=== PATIENT | female | born 1955 | race Two or more races ===

== ENCOUNTER → 2017-04-17 | Outpatient (CLI) | payer BC | END | disposition home or self-care (01) | LOC: HKI 10:40 | DX: Z47.1 Aftercare following joint replacement surgery (principal); Z96.651 Presence of right artificial knee joint | CPT/HCPCS: G0463 ==

== ENCOUNTER 2017-07-21 22:35 | Emergency (ER) | payer BC ==
[2017-07-22 00:08] LABS: ADD MAN DIFF? NO
[2017-07-22 00:12] LABS: BASOPHILS % 0.5 % (0.0-2.0); EOSINOPHILS # 0.1 10^3/ul (0.0-0.5); HEMATOCRIT 35.5 % (37.0-47.0); HEMOGLOBIN 11.7 g/dl (12.0-16.0); LYMPHOCYTES % 46.5 % (15.0-51.0); MEAN CORPUSCULAR HEMOGLOBIN 30.5 pg (29.0-33.0); MEAN CORPUSCULAR VOLUME 92.4 fl (82.0-101.0); MONOCYTE # 0.4 10^3/ul (0.3-0.9); MONOCYTES % 10.1 % (0.0-11.0); NEUTROPHIL # 1.7 10^3/ul (1.6-7.5); NEUTROPHILS % 39.7 % (39.0-77.0); PLATELET COUNT 272 10^3/UL (140-415); RED BLOOD COUNT 3.84 10^6/ul (4.20-5.40); RED CELL DISTRIBUTION WIDTH 13.4 % (11.5-14.5)
[2017-07-22 00:12] LABS: WHITE BLOOD COUNT 4.3 10^3/ul (4.8-10.8)
[2017-07-22] MEDS: ASPIRIN 325 MG TAB PO (00:16)
[2017-07-22] MEDS: LIDOCAINE/MYLANTA 40 ML BTL PO (00:16)
[2017-07-22 00:33] LABS: ANION GAP 18 (8-16); BLOOD UREA NITROGEN 22 mg/dl (7-20); CALCIUM 8.7 mg/dl (8.4-10.2); CARBON DIOXIDE 26 mmol/L (21-31); CHLORIDE 107 mmol/L (97-110); CREATININE 0.56 mg/dl (0.44-1.00); GLUCOSE 94 mg/dl (70-220); POTASSIUM 4.1 mmol/L (3.5-5.1); SODIUM 147 mmol/L (135-144)
[2017-07-22 00:45] LABS: B-TYPE NATRIURETIC PEPTIDE 46 PG/ML (0-125)
[2017-07-22 00:47] LABS: TROPONIN-I < 0.012 ng/ml (0.00-0.12)
== END 2017-07-22 01:58 | disposition home or self-care (01) ==
LOC: E/R 07-22 01:58
DX: K21.9 Gastro-esophageal reflux disease without esophagitis (principal); D64.9 Anemia, unspecified; R06.02 Shortness of breath
CPT/HCPCS: 36415; 71045; 80048; 83880; 84484; 85025; 93005; 99285-25

== ENCOUNTER → 2017-08-27 | Outpatient (CLI) | payer BC | END | disposition home or self-care (01) | LOC: RAD 14:10 | DX: M17.0 Bilateral primary osteoarthritis of knee (principal) | CPT/HCPCS: 73562; 73562-50 ==

== ENCOUNTER → 2017-12-16 | Outpatient (CLI) | payer BC | END | disposition home or self-care (01) | LOC: HKI 12:03 | DX: M17.12 Unilateral primary osteoarthritis, left knee (principal); Z96.652 Presence of left artificial knee joint | CPT/HCPCS: G0463 ==

== ENCOUNTER → 2018-02-17 | Outpatient (CLI) | payer BC | END | disposition home or self-care (01) | LOC: HKI 11:07 | DX: Z01.818 Encounter for other preprocedural examination (principal) | CPT/HCPCS: G0463 ==

== ENCOUNTER → 2018-02-17 | Outpatient (CLI) | payer BC ==
[2018-02-17 13:56] LABS: ADD MAN DIFF? NO
[2018-02-17 14:11] LABS: BASOPHILS % 0.5 % (0.0-2.0); EOSINOPHILS # 0.1 10^3/ul (0.0-0.5); EOSINOPHILS % 1.3 % (0.0-7.0); HEMATOCRIT 38.3 % (37.0-47.0); HEMOGLOBIN 12.5 g/dl (12.0-16.0); LYMPHOCYTES # 2.1 10^3/ul (0.8-2.9); LYMPHOCYTES % 51.4 % (15.0-51.0); MEAN CORPUSCULAR HEMOGLOBIN 29.7 pg (29.0-33.0); MEAN CORPUSCULAR HGB CONC 32.6 g/dl (32.0-37.0); MEAN PLATELET VOLUME 10.1 fl (7.4-10.4); MONOCYTE # 0.4 10^3/ul (0.3-0.9); MONOCYTES % 8.8 % (0.0-11.0); NEUTROPHIL # 1.5 10^3/ul (1.6-7.5); NEUTROPHILS % 37.7 % (39.0-77.0); PLATELET COUNT 272 10^3/UL (140-415); RED BLOOD COUNT 4.21 10^6/ul (4.20-5.40)
[2018-02-17 14:17] LABS: ADD UMIC YES; UR ASCORBIC ACID NEGATIVE (NEGATIVE); UR BACTERIA FEW /HPF (NONE SEEN); UR BILIRUBIN (Dip) NEGATIVE (NEGATIVE); UR BLOOD (Dip) 1+ mg/dL (NEGATIVE); UR CLARITY CLEAR (CLEAR); UR COLOR STRAW (YELLOW); UR GLUCOSE (Dip) NEGATIVE (NEGATIVE); UR KETONES (Dip) TRACE mg/dL (NEGATIVE); UR LEUKOCYTE ESTERASE (Dip) 1+ Leu/ul (NEGATIVE); UR NITRITE (Dip) NEGATIVE (NEGATIVE); UR NONSQUAMOUS EPITHELIAL CELL 1 /HPF (NONE SEEN); UR RBC 1 /HPF (0-5); UR SPECIFIC GRAVITY (Dip) 1.011 (1.003-1.030); UR TOTAL PROTEIN (Dip) NEGATIVE (NEGATIVE); UR UROBILINOGEN (Dip) NEGATIVE (NEGATIVE); UR WBC 6 /HPF (0-5)
[2018-02-17 14:37] LABS: ALANINE AMINOTRANSFERASE 19 IU/L (13-69); ALBUMIN 4.3 g/dl (3.3-4.9); ALKALINE PHOSPHATASE 62 IU/L (42-121); ANION GAP 10 (8-16); ASPARTATE AMINO TRANSFERASE 22 IU/L (15-46); BILIRUBIN,INDIRECT 0.3 mg/dl (0-1.1); BILIRUBIN,TOTAL 0.3 mg/dl (0.2-1.3); BLOOD UREA NITROGEN 24 mg/dl (7-20); CALCIUM 9.3 mg/dl (8.4-10.2); CARBON DIOXIDE 29 mmol/L (21-31); CHLORIDE 108 mmol/L (97-110); CREATININE 0.54 mg/dl (0.44-1.00); GLUCOSE 95 mg/dl (70-220); SODIUM 143 mmol/L (135-144); TOTAL PROTEIN 7.6 g/dl (6.1-8.1)
[2018-02-17 16:29] LABS: INR 0.86; PROTIME 11.8 Sec (11.9-14.9); PT RATIO 0.9
[2018-02-17 16:30] LABS: PARTIAL THROMBOPLASTIN TIME 28.3 Sec (23.0-35.0)
== END | disposition home or self-care (01) ==
LOC: LAB 13:24
DX: Z01.818 Encounter for other preprocedural examination (principal)
CPT/HCPCS: 71046; 80053; 81001; 85025; 85610; 85730; 93005

== ENCOUNTER 2018-02-27 07:18 | Inpatient (IN) | payer BC ==
[2018-02-27] MEDS: ACETAMINOPHEN 1000MG/100ML IV 100 ML IVPB (06:00)
[2018-02-27] MEDS: DEXAMETHASONE 4 MG/ML 1 ML INJ IV (06:00)
[2018-02-27] MEDS: CEFAZOLIN 2 GM/50 ML (PMX) 50 ML IVPB (06:00)
[2018-02-27] MEDS: TRANEXAMIC ACID 1,000 MG in NS 100 ML INTRA-OP X1 IVPB (06:00)
[2018-02-27] MEDS: TRANEXAMIC ACID 1,000 MG in NS 100 ML PRE-OP X1 IVPB (06:00)
[~2018-02-27 07:18] MED LIST: CEFAZOLIN 1 GM INJ; EPINEPHrine 1 MG INJ; LACTATED RINGER'S 1,000 ML IV*; METOCLOPRAMIDE 10 MG INJ
[2018-02-27] MEDS ORDERED: MAGNESIUM HYDROXIDE 30ML CUP PO (07:30)
[2018-02-27] MEDS: CEFAZOLIN 1 GM/50 ML (PMX) 50 ML IVPB ×3 (07:30→23:05)
[2018-02-27] MEDS ORDERED: BETHANECHOL 25 MG TAB PO (07:30)
[2018-02-27] MEDS ORDERED: oxyCODONE 5 MG TAB PO (07:30)
[2018-02-27] MEDS ORDERED: NALOXONE (0.4 MG/ML) INJ IV (07:30)
[2018-02-27] MEDS ORDERED: SENNA/DOCUSATE NA (8.6MG/50MG) TAB PO (07:30)
[2018-02-27] MEDS ORDERED: BISACODYL 10 MG SUPP PR (07:30)
[2018-02-27] MEDS ORDERED: NA PHOSPHATE/BIPHOS 133 ML ENEMA PR (07:30)
[2018-02-27] MEDS: ONDANSETRON 4 MG INJ IV ×4 (07:30→20:25)
[2018-02-27] MEDS ORDERED: PROPOFOL 20 ML (08:07)
[2018-02-27] MEDS ORDERED: LIDOCAINE 2% (SDV) 5 ML INJ (08:07)
[2018-02-27] MEDS ORDERED: FENTAnyl 50 MCG/ML VIAL (08:08)
[2018-02-27] MEDS ORDERED: MIDAZOLAM 1 MG/ML 2 ML INJ (08:08)
[2018-02-27] MEDS ORDERED: ROPIVACAINE 0.5 % 30 ML VIAL (08:08)
[2018-02-27] MEDS ORDERED: ONDANSETRON 4 MG INJ (08:10)
[2018-02-27] MEDS ORDERED: BUPIVACAINE 0.75%/DEXT (SPINAL) 2 ML INJ (08:11)
[2018-02-27] MEDS: CELECOXIB 100 MG CAP PO ×2 (09:00→19:51)
[2018-02-27] MEDS: GABAPENTIN 100 MG CAP PO ×3 (09:00→19:51)
[2018-02-27] MEDS ORDERED: IPRATROPIUM (NEB) 0.5 MG/2.5 ML AMP HHN (09:30)
[2018-02-27] MEDS ORDERED: MEPERIDINE 25 MG INJ IV (09:30)
[2018-02-27] MEDS ORDERED: hydrALAzine 20 MG INJ IV (09:30)
[2018-02-27] MEDS ORDERED: FENTAnyl 50 MCG/ML VIAL IV ×2 (09:30)
[2018-02-27] MEDS ORDERED: HYDROmorphONE 1 MG/5 ML IV SYRINGE IV ×2 (09:30)
[2018-02-27] MEDS ORDERED: LEVALBUTEROL (NEB) 1.25 MG/0.5 ML AMP HHN (09:30)
[2018-02-27] MEDS ORDERED: LABETALOL HCL 20MG INJ IV (09:30)
[2018-02-27] MEDS ORDERED: DIPHENHYDRAMINE 50 MG INJ IV (09:30)
[2018-02-27] MEDS ORDERED: ONDANSETRON 4 MG INJ IV (09:30)
[2018-02-27] MEDS: HYDROmorphONE 1 MG/5 ML IV SYRINGE IV (11:57)
[2018-02-27] MEDS: ASPIRIN (EC) 325 MG TAB PO (12:35)
[2018-02-27] MEDS: DOCUSATE SODIUM 100 MG CAP PO (12:36)
[2018-02-27] MEDS: KETOROLAC 15 MG INJ IV (13:18)
[2018-02-27] MEDS: SOD CHLORIDE 0.9% 1,000 ML IV ×2 (14:23→20:17)
[2018-02-27] MEDS: oxyCODONE 5 MG TAB PO ×2 (18:28→21:25)
[2018-02-28] MEDS: oxyCODONE 5 MG TAB PO ×3 (03:51→20:16)
[2018-02-28 05:03] LABS: ADD MAN DIFF? NO; BASOPHILS % 0.1 % (0.0-2.0); EOSINOPHILS % 0.1 % (0.0-7.0); HEMATOCRIT 32.5 % (37.0-47.0); HEMOGLOBIN 10.3 g/dl (12.0-16.0); LYMPHOCYTES # 1.6 10^3/ul (0.8-2.9); LYMPHOCYTES % 21.2 % (15.0-51.0); MEAN CORPUSCULAR HEMOGLOBIN 29.4 pg (29.0-33.0); MEAN CORPUSCULAR HGB CONC 31.7 g/dl (32.0-37.0); MEAN CORPUSCULAR VOLUME 92.9 fl (82.0-101.0); MONOCYTE # 0.6 10^3/ul (0.3-0.9); MONOCYTES % 7.9 % (0.0-11.0); NEUTROPHIL # 5.2 10^3/ul (1.6-7.5); NEUTROPHILS % 70.4 % (39.0-77.0); PLATELET COUNT 233 10^3/UL (140-415); RED CELL DISTRIBUTION WIDTH 13.5 % (11.5-14.5)
[2018-02-28 05:03] LABS: WHITE BLOOD COUNT 7.4 10^3/ul (4.8-10.8)
[2018-02-28] MEDS: DIPHENHYDRAMINE 50 MG INJ IV (05:42)
[2018-02-28 05:43] LABS: ANION GAP 5 (5-13); BLOOD UREA NITROGEN 11 mg/dl (7-20); CALCIUM 8.5 mg/dl (8.4-10.2); CARBON DIOXIDE 27 mmol/L (21-31); CHLORIDE 109 mmol/L (97-110); CREATININE 0.51 mg/dl (0.44-1.00); Estimated GFR > 60 mL/min (>60); GLUCOSE 102 mg/dl (70-220); POTASSIUM 4.3 mmol/L (3.5-5.1); SODIUM 141 mmol/L (135-144)
[2018-02-28] MEDS: CEFAZOLIN 1 GM/50 ML (PMX) 50 ML IVPB ×2 (06:29→14:35)
[2018-02-28] MEDS: SOD CHLORIDE 0.9% 1,000 ML IV (08:25)
[2018-02-28] MEDS: ASPIRIN (EC) 325 MG TAB PO (08:44)
[2018-02-28] MEDS: DOCUSATE SODIUM 100 MG CAP PO ×2 (08:45→20:16)
[2018-02-28] MEDS: CELECOXIB 100 MG CAP PO ×2 (08:45→20:16)
[2018-02-28] MEDS: FERROUS FUMARATE (SR) TAB PO ×2 (08:45→20:16)
[2018-02-28] MEDS: GABAPENTIN 100 MG CAP PO ×3 (08:45→20:16)
[2018-02-28] MEDS: KETOROLAC 15 MG INJ IV (12:15)
[2018-03-01] MEDS: oxyCODONE 5 MG TAB PO ×3 (00:22→19:00)
[2018-03-01 05:14] LABS: ADD MAN DIFF? NO
[2018-03-01 05:19] LABS: BASOPHILS % 0.3 % (0.0-2.0); EOSINOPHILS % 0.7 % (0.0-7.0); HEMATOCRIT 33.2 % (37.0-47.0); HEMOGLOBIN 10.6 g/dl (12.0-16.0); LYMPHOCYTES # 1.8 10^3/ul (0.8-2.9); LYMPHOCYTES % 30.9 % (15.0-51.0); MEAN CORPUSCULAR HEMOGLOBIN 29.6 pg (29.0-33.0); MEAN CORPUSCULAR HGB CONC 31.9 g/dl (32.0-37.0); MEAN CORPUSCULAR VOLUME 92.7 fl (82.0-101.0); MEAN PLATELET VOLUME 10.2 fl (7.4-10.4); MONOCYTE # 0.5 10^3/ul (0.3-0.9); MONOCYTES % 8.4 % (0.0-11.0); NEUTROPHIL # 3.5 10^3/ul (1.6-7.5); NEUTROPHILS % 59.4 % (39.0-77.0); PLATELET COUNT 224 10^3/UL (140-415); RED BLOOD COUNT 3.58 10^6/ul (4.20-5.40); RED CELL DISTRIBUTION WIDTH 13.6 % (11.5-14.5)
[2018-03-01 05:19] LABS: WHITE BLOOD COUNT 5.8 10^3/ul (4.8-10.8)
[2018-03-01 05:45] LABS: ANION GAP 6 (5-13); BLOOD UREA NITROGEN 10 mg/dl (7-20); CALCIUM 8.6 mg/dl (8.4-10.2); CARBON DIOXIDE 28 mmol/L (21-31); CHLORIDE 106 mmol/L (97-110); CREATININE 0.52 mg/dl (0.44-1.00); Estimated GFR > 60 mL/min (>60); GLUCOSE 110 mg/dl (70-220); SODIUM 140 mmol/L (135-144)
[2018-03-01] MEDS: PANTOPRAZOLE (EC) 40 MG TAB PO (06:30)
[2018-03-01] MEDS: DOCUSATE SODIUM 100 MG CAP PO ×2 (09:16→21:02)
[2018-03-01] MEDS: CELECOXIB 100 MG CAP PO ×2 (09:17→21:02)
[2018-03-01] MEDS: GABAPENTIN 100 MG CAP PO ×3 (09:17→21:02)
[2018-03-01] MEDS: ASPIRIN (EC) 325 MG TAB PO (09:17)
[2018-03-01] MEDS: FERROUS FUMARATE (SR) TAB PO (09:17)
[2018-03-01] MEDS ORDERED: ONDANSETRON 4 MG TAB PO (10:00)
[2018-03-01] MEDS: ONDANSETRON 4 MG INJ IV (10:41)
[2018-03-02] MEDS: PANTOPRAZOLE (EC) 40 MG TAB PO (04:57)
[2018-03-02 05:20] LABS: ADD MAN DIFF? NO
[2018-03-02 05:21] LABS: BASOPHILS % 0.4 % (0.0-2.0); EOSINOPHILS # 0.1 10^3/ul (0.0-0.5); EOSINOPHILS % 1.8 % (0.0-7.0); HEMATOCRIT 30.6 % (37.0-47.0); LYMPHOCYTES # 1.7 10^3/ul (0.8-2.9); LYMPHOCYTES % 33.3 % (15.0-51.0); MEAN CORPUSCULAR HEMOGLOBIN 30.3 pg (29.0-33.0); MEAN CORPUSCULAR HGB CONC 32.7 g/dl (32.0-37.0); MEAN CORPUSCULAR VOLUME 92.7 fl (82.0-101.0); MEAN PLATELET VOLUME 10.2 fl (7.4-10.4); MONOCYTE # 0.5 10^3/ul (0.3-0.9); NEUTROPHIL # 2.8 10^3/ul (1.6-7.5); NEUTROPHILS % 55.3 % (39.0-77.0); PLATELET COUNT 220 10^3/UL (140-415); RED CELL DISTRIBUTION WIDTH 13.6 % (11.5-14.5)
[2018-03-02 05:57] LABS: ANION GAP 7 (5-13); BLOOD UREA NITROGEN 10 mg/dl (7-20); CALCIUM 8.6 mg/dl (8.4-10.2); CARBON DIOXIDE 29 mmol/L (21-31); CHLORIDE 104 mmol/L (97-110); CREATININE 0.55 mg/dl (0.44-1.00); Estimated GFR > 60 mL/min (>60); GLUCOSE 102 mg/dl (70-220); POTASSIUM 3.8 mmol/L (3.5-5.1); SODIUM 140 mmol/L (135-144)
[2018-03-02] MEDS: ASPIRIN (EC) 325 MG TAB PO (09:29)
[2018-03-02] MEDS: DOCUSATE SODIUM 100 MG CAP PO (09:29)
[2018-03-02] MEDS: CELECOXIB 100 MG CAP PO (09:29)
[2018-03-02] MEDS: GABAPENTIN 100 MG CAP PO (09:29)
[2018-03-02] MEDS: FERROUS FUMARATE (SR) TAB PO (09:33)
== END 2018-03-02 11:35 | disposition home health service (06) | DRG 470 ==
LOC: REC 07:18 → MS1 13:15
PROC: 0SRD0J9 Replacement of Left Knee Joint with Synthetic Substitute, Cemented, Open Approach (ICD-10-PCS; principal; 2018-02-27 09:30)
DX: M17.12 Unilateral primary osteoarthritis, left knee (principal); K21.9 Gastro-esophageal reflux disease without esophagitis; D64.9 Anemia, unspecified; R11.2 Nausea with vomiting, unspecified
CPT/HCPCS: 73560; 80048; 85025; 86850; 86900; 86901; 87081; 88304; 88311; 97110; 97116; 97161; 97166; 97530; 97535

== ENCOUNTER → 2018-04-15 | Outpatient (CLI) | payer BC | END | disposition home or self-care (01) | LOC: U/S 09:51 | DX: D25.9 Leiomyoma of uterus, unspecified (principal) | CPT/HCPCS: 76830; 76856 ==

== ENCOUNTER → 2018-07-21 | Outpatient (CLI) | payer BC | END | disposition home or self-care (01) | LOC: HKI 11:29 | DX: Z09 Encounter for follow-up examination after completed treatment for conditions other than malignant neoplasm (principal); Z96.652 Presence of left artificial knee joint | CPT/HCPCS: 73560; 73560-LT ==